=== PATIENT | male | born 1990 | race Caucasian/White ===

== ENCOUNTER 2018-07-11 12:39 | Emergency (ER) | payer OTHER ==
[2018-07-11] MEDS: HYDROmorphONE 1 MG/ML SYG IV (13:01)
[2018-07-11] MEDS: ONDANSETRON 4 MG INJ IV (13:01)
[2018-07-11] MEDS: HYDROmorphONE 2 MG/ML SYG IV (13:38)
[2018-07-11] MEDS: PROPOFOL 200 MG INJ IV (14:02)
[2018-07-11] MEDS: HYDROCODONE/APAP (10/325) TAB PO (15:35)
== END 2018-07-11 15:48 | disposition home or self-care (01) ==
LOC: E/R 12:39
DX: S43.005A Unspecified dislocation of left shoulder joint, initial encounter (principal); X58.XXXA Exposure to other specified factors, initial encounter; Y92.9 Unspecified place or not applicable
CPT/HCPCS: 23650; 73030; 96374; 96375; 96376; 99285-25